=== PATIENT | female | born 1985 | race African-American/Black ===

== ENCOUNTER 2020-04-21 12:10 | Outpatient (CLI) | payer OTHER ==
--- NOTE | 2020-04-21 13:38 | RAD ---
CHEST ONE VIEW: 04/21/20 HISTORY: Nonspecific reaction to TB skin test. FINDINGS/IMPRESSION: Heart size is normal. The lungs are clear. IMPRESSION: Normal chest. No evidence for active TB. POS: [facility]
== END 2020-04-21 12:11 | disposition home or self-care (01) ==
LOC: BICRAD 12:10
DX: R76.11 Nonspecific reaction to tuberculin skin test without active tuberculosis (principal)
CPT/HCPCS: 71045